=== PATIENT | female | born 1995 | race Caucasian/White ===

== ENCOUNTER 2019-01-01 23:18 | Emergency (ER) | payer MEDICAID ==
[~2019-01-01] VITALS: Ht 162.6 cm; Wt 50.9 kg
[2019-01-01 23:59] LABS: URINE HCG NEGATIVE (NEG)
[2019-01-02 00:10] LABS: CLARITY,URINE CLEAR (Clear); COLOR,URINE STRAW (Yellow); GLUCOSE, URINE NEGATIVE (Neg); KETONES,URINE NEGATIVE (Neg); LEUKOCYTE ESTERASE ,URINE NEGATIVE (Neg); NITRITES, URINE NEGATIVE (Neg); OCCULT BLOOD,URINE SMALL (Neg); PROTEIN,URINE NEGATIVE (Neg); UROBILINOGEN,URINE 0.2 E.U/dL (0.2-1.0)
[2019-01-02 00:15] LABS: UA COLLECTION TYPE CLN CATCH MIDSTREAM
[2019-01-02 00:16] LABS: BACTERIA,URINE NONE SEEN /HPF (Neg); RBC,URINE 0-2 /HPF (0-2); SQUAMOUS EPITHELIAL CELL,UR NONE SEEN /LPF (FEW); WBC,URINE NONE SEEN /HPF (0-4)
--- NOTE | 2019-01-02 00:30 | NUR ---
[place] while Dr Victor performed rectal exam.
[2019-01-02 00:36] VITALS: BP 139/78
== END 2019-01-02 00:40 | disposition home or self-care (01) ==
LOC: ER 23:19
DX: R10.30 Lower abdominal pain, unspecified (principal); R19.7 Diarrhea, unspecified; R42 Dizziness and giddiness; R20.0 Anesthesia of skin; R30.0 Dysuria; R63.4 Abnormal weight loss; M25.473 Effusion, unspecified ankle; M54.5 Low back pain; H53.8 Other visual disturbances; F12.90 Cannabis use, unspecified, uncomplicated; F17.200 Nicotine dependence, unspecified, uncomplicated
CPT/HCPCS: 81001; 81003; 81025; 99283

== ENCOUNTER 2021-09-28 02:01 | Emergency (ER) | payer MEDICAID ==
[~2021-09-28] VITALS: Ht 162.6 cm; Wt 63.2 kg
[2021-09-28 04:32] VITALS: BP 109/76
== END 2021-09-28 04:38 | disposition home or self-care (01) ==
LOC: ER 02:01
DX: K13.0 Diseases of lips (principal); F12.90 Cannabis use, unspecified, uncomplicated
CPT/HCPCS: 99281

== ENCOUNTER 2022-10-24 21:51 | Emergency (ER) | payer MEDICAID, OTHER ==
[~2022-10-24] VITALS: Ht 162.6 cm; Wt 62.7 kg
[2022-10-24 22:49] LABS: URINE HCG NEGATIVE (NEG)
--- NOTE | 2022-10-24 22:54 | NUR ---
pt on pyridium
[2022-10-24 22:55] LABS: UA COLLECTION TYPE CLN CATCH MIDSTREAM
[2022-10-24 22:56] LABS: CLARITY,URINE CLOUDY (Clear); COLOR,URINE AMBER (Yellow)
--- NOTE | 2022-10-24 22:58 | NUR ---
Pt states she is on AZO
[2022-10-24 23:18] LABS: BACTERIA,URINE FEW /HPF (Neg); RBC,URINE 0-2 /HPF (0-2); SQUAMOUS EPITHELIAL CELL,UR FEW /LPF (FEW); WBC,URINE 0-4 /HPF (0-4)
[2022-10-24 23:19] LABS: AMORPHOUS URATES 4+; HYALINE CASTS 0-3 /LPF (NEGATIVE); MUCUS STRANDS FEW /LPF (Neg)
--- NOTE | 2022-10-25 00:13 | NUR ---
0010 PROVIDER AT BEDSIDE PT PLACED ON MONITOR GENERAL ASSESSMENT COMPLETED
[2022-10-25] MEDS ORDERED: ondansetron 4mg rapidly disintigrating tab PO ONE (00:15)
[2022-10-25] MEDS ORDERED: oxybutynin 5mg tablet PO ONE (00:15)
[2022-10-25 00:16] VITALS: BP 108/72
[2022-10-25] MEDS ORDERED: OXYB5TAB29 PO (00:19)
[2022-10-25] MEDS ORDERED: ONDA8TAB13 PO (00:19)
== END 2022-10-25 01:10 | disposition home or self-care (01) ==
LOC: ER 21:52
DX: R30.0 Dysuria (principal); R11.2 Nausea with vomiting, unspecified; R10.9 Unspecified abdominal pain; F32.A Depression, unspecified; F12.10 Cannabis abuse, uncomplicated; Z79.899 Other long term (current) drug therapy
CPT/HCPCS: 81001; 81025; 99283; J7030

== ENCOUNTER 2024-12-05 15:41 | Emergency (ER) | payer MEDICAID ==
[~2024-12-05] VITALS: Ht 162.6 cm; Wt 57.8 kg
[~2024-12-05 15:41] MED LIST: LIT300C PO; LURA40TA4 PO; MIRT-87 PO; NICO-907 BC
[2024-12-05] MEDS: haloperidol lactate 5mg/ml inj IM ONE (15:55)
[2024-12-05] MEDS: normal saline 1000ml 1,000 ML IV ONE (15:55)
[2024-12-05 16:39] LABS: BASOPHILS % (AUTO) 0.2 % (0-1); EOSINOPHILS % (AUTO) 0.1 % (0-6); HEMATOCRIT 45.5 % (35.0-45.0); HEMOGLOBIN 15.2 g/dl (12.0-16.0); LYMPHOCYTES # (AUTO) 1.5 X10'3 (1.1-4.8); LYMPHOCYTES % (AUTO) 10.7 % (21-51); MEAN CORPUSCULAR HEMOGLOBIN 29.7 PG (27.0-31.0); MEAN CORPUSCULAR HGB CONC 33.4 g/dL (33.0-36.5); MONOCYTES # (AUTO) 0.6 X10'3 (0-0.9); MONOCYTES % (AUTO) 4.3 % (2-12); NEUTROPHILS # (AUTO) 11.9 X10'3 (1.8-7.7); NEUTROPHILS % (AUTO) 84.7 % (42-75); PLATELET COUNT 334 X10'3 (140-440); RED BLOOD COUNT 5.11 X10'6 (4.20-5.60); RED CELL DISTRIBUTION WIDTH 12.8 % (11.5-14.5); WHITE BLOOD COUNT 14.1 X10'3 (4.5-11.0)
[2024-12-05 17:09] LABS: ALANINE AMINOTRANSFERASE 26 U/L (12-78); ALBUMIN 4.8 G/DL (3.4-5.0); ALBUMIN/GLOBULIN RATIO 1.5 (1.1-1.5); ALKALINE PHOSPHATASE 71 IU/L (46-116); ANION GAP 22 (8-16); ASPARTATE AMINO TRANSFERASE 11 U/L (10-37); BETA HCG,QUANTITATIVE < 1.0 mIU/ml; BILIRUBIN,TOTAL 0.9 MG/DL (0.1-1.0); BLOOD UREA NITROGEN 12 MG/DL (7-18); BUN/CREATININE RATIO 11.2 (10.0-20.0); CALCIUM 9.8 MG/DL (8.5-10.1); CHLORIDE 103 MMOL/L (99-107); CREATININE 1.07 MG/DL (0.40-0.90); GLUCOSE 182 MG/DL (70-104); POTASSIUM 3.2 MMOL/L (3.5-5.1); SODIUM 142 MMOL/L (135-145); TOTAL CARBON DIOXIDE 17.1 MMOL/L (24-32); eCRCL 68 ML/MIN; eGFR 61 ML/MIN
[2024-12-05] MEDS ORDERED: METO10TA3 PO (19:14)
[2024-12-05 19:27] VITALS: BP 130/80; PULSE 99; RESP 18; TEMP 98.6; O2SAT 98
== END 2024-12-05 19:30 | disposition home or self-care (01) ==
LOC: ER 15:41
DX: R11.2 Nausea with vomiting, unspecified (principal); F12.90 Cannabis use, unspecified, uncomplicated; F20.9 Schizophrenia, unspecified; Z91.040 Latex allergy status
CPT/HCPCS: 36415; 80053; 84702; 85025; 96360; 96372; 99283; J1630; J7030